=== PATIENT | male | born 1960 | race Caucasian/White ===

== ENCOUNTER → 2018-06-17 | Outpatient (CLI) | payer OTHER | END | disposition home or self-care (01) | LOC: CVU 10:36 | PROVIDERS: ATTEND Internal Medicine Cardiovascular Disease | DX: I49.3 Ventricular premature depolarization (principal); I10 Essential (primary) hypertension | CPT/HCPCS: 78452; 93017; 93306; A9502 ==

== ENCOUNTER 2018-06-29 09:38 | Day surgery (SDC) | payer OTHER ==
[~2018-06-29] VITALS: Ht 175.3 cm; Wt 115.9 kg
[2018-06-29] MEDS ORDERED: PREG150C PO (10:05)
[2018-06-29] MEDS ORDERED: ATOR40TA78 PO (10:05)
[2018-06-29] MEDS ORDERED: ALLO300T PO (10:05)
[2018-06-29] MEDS ORDERED: LISI-167 PO (10:05)
[2018-06-29] MEDS ORDERED: METO25TA35 PO (10:05)
[2018-06-29] MEDS ORDERED: OMEP-110 PO (10:05)
[2018-06-29] MEDS ORDERED: KRIL1CAP6 PO (10:11)
[2018-06-29] MEDS ORDERED: MULT-751 PO (10:11)
[2018-06-29] MEDS ORDERED: MAGN100T PO (10:11)
[2018-06-29] MEDS ORDERED: SAW1CAPS2 PO (10:11)
[2018-06-29] MEDS ORDERED: CHOL5000 PO (10:11)
[2018-06-29] MEDS ORDERED: NIAC500C3 PO (10:11)
[2018-06-29] MEDS ORDERED: TURM500C7 PO (10:11)
[2018-06-29] MEDS ORDERED: ASPI-650 PO (10:11)
[2018-06-29] MEDS ORDERED: UBID100C41 PO (10:12)
[2018-06-29 10:18] VITALS: BP 150/79
[2018-06-29 10:48] LABS: ANION GAP 6 mmol/L (5-15); CALCIUM 9.4 mg/dL (8.5-10.1); CHLORIDE 105 mmol/L (98-107)
[2018-06-29 10:49] LABS: CREATININE 1.06 mg/dL (0.7-1.3)
[2018-06-29] MEDS ORDERED: NITROGLYCERIN 5 MG/ML, 10ML ONE (11:41)
[2018-06-29] MEDS ORDERED: MIDAZOLAM 1 MG/ML, 2ML ONE ×2 (11:41→12:42)
[2018-06-29] MEDS ORDERED: LIDOCAINE/PF 1%, 30ML ONE (11:41)
[2018-06-29] MEDS ORDERED: FENTANYL PF 100 MCG/2ML ONE (11:41)
[2018-06-29] MEDS ORDERED: VERAPAMIL 2.5 MG/ML, 2ML ONE (12:26)
== END 2018-06-29 16:07 | disposition home or self-care (01) ==
LOC: CACL 09:38
PROVIDERS: ATTEND Internal Medicine Cardiovascular Disease
DX: I25.119 Atherosclerotic heart disease of native coronary artery with unspecified angina pectoris (principal); E78.5 Hyperlipidemia, unspecified; G62.9 Polyneuropathy, unspecified; E66.9 Obesity, unspecified; I42.9 Cardiomyopathy, unspecified; I45.6 Pre-excitation syndrome; I10 Essential (primary) hypertension; Z98.61 Coronary angioplasty status; Z79.899 Other long term (current) drug therapy; Z95.5 Presence of coronary angioplasty implant and graft
CPT/HCPCS: 36415; 80048; 93458; 99156; C1769; C1894; J2250; J3010; J3490; Q9967

== ENCOUNTER → 2020-08-19 | Outpatient (CLI) | payer OTHER ==
[~2020-08-19] MED LIST: ALLO300T PO; ASPI-650 PO; ATOR40TA78 PO; CHOL5000 PO; KRIL1CAP6 PO; LISI-167 PO; MAGN100T PO; METO25TA35 PO; MULT-751 PO; NIAC500C3 PO; OMEP-110 PO; PREG150C PO; SAW1CAPS6 PO; TURM500C7 PO; UBID100C41 PO
== END | disposition home or self-care (01) ==
LOC: CVU 10:13
PROVIDERS: ATTEND Internal Medicine Cardiovascular Disease
DX: I08.2 Rheumatic disorders of both aortic and tricuspid valves (principal); I42.9 Cardiomyopathy, unspecified
CPT/HCPCS: 93306

== ENCOUNTER 2021-02-19 07:14 | Emergency (ER) | payer BC, OTHER ==
[~2021-02-19] VITALS: Ht 175.3 cm; Wt 123.7 kg
[~2021-02-19 07:14] MED LIST changes: +ASPI-1026 PO; -ASPI-650 PO
--- NOTE | 2021-02-19 07:32 | NUR ---
PATIENT WALKED BACK FROM TRIAGE WITH CHIEF C/O "I FEEL BLOATED." PATIENT REPORTS HE'S BEEN FEELING BLOATED SINCE 7 PM YESTERDAY EVENING, PT STATES "I FEEL LIKE I NEED TO BURP BUT CAN'T." PATIENT REPORTS NEAR SYNCOPAL EPISODE THIS MORNING. DENIES N/V/D, NO FEVER. CONNECTED TO MONITOR, VSS, AT BEDSIDE, CALL LIGHT WITHIN REACH.
[2021-02-19] MEDS ORDERED: MAALOX/HYOSCYAMINE/LIDOCAINE 45 ML BTL ONE ×2 (07:42→11:38)
[2021-02-19] MEDS ORDERED: FAMOTIDINE 20 MG TABLET ONE (07:42)
[2021-02-19 07:56] LABS: BASOPHILS % (AUTO) 1 % (0-1); EOSINOPHILS % (AUTO) 1 % (1-7); LYMPHOCYTES % (AUTO) 28 % (22-44); MEAN CORPUSCULAR HEMOGLOBIN 33.4 pg (27.5-34.5); MEAN CORPUSCULAR HGB CONC 33.7 g/dL (33.2-36.2); MEAN PLATELET VOLUME 7.8 fL (7.4-10.4); MONOCYTES % (AUTO) 11 % (2-9); NEUTROPHILS % (AUTO) 59 % (42-75); PLATELET COUNT 306 x10^3/uL (130-400); RED BLOOD COUNT 4.57 x10^6/uL (4.38-5.82); RED CELL DISTRIBUTION WIDTH 13.7 % (9.4-14.8)
[2021-02-19] MEDS ORDERED: FAMOTIDINE 20 MG TABLET PO ONE (08:00)
[2021-02-19] MEDS ORDERED: MAALOX/HYOSCYAMINE/LIDOCAINE 45 ML BTL PO ONE ×2 (08:00→12:00)
[2021-02-19 08:06] LABS: ALANINE AMINOTRANSFERASE 50 U/L (12-78); ALBUMIN 3.7 g/dL (3.4-5.0); ANION GAP 7 mmol/L (5-15); CALCIUM 9.6 mg/dL (8.5-10.1); CHLORIDE 106 mmol/L (98-107); CREATININE 1.42 mg/dL (0.7-1.3)
[2021-02-19 08:11] LABS: ALKALINE PHOSPHATASE 58 U/L (45-117); BILIRUBIN,TOTAL 0.4 mg/dL (0.2-1.0); TOTAL PROTEIN 8.2 g/dL (6.4-8.2); TROPONIN I < 0.015 ng/mL (0.000-0.045)
--- NOTE | 2021-02-19 08:39 | NUR ---
[address] SCAN, PATIENT CONNECTED TO MONITOR, VSS, CALL LIGHT WITHIN REACH. WAITING FOR CT SCAN.
[2021-02-19] MEDS ORDERED: OMNIPAQUE 350 MG/ML, 150 ML BOTTLE ONE (09:23)
--- NOTE | 2021-02-19 09:30 | NUR ---
Task RN: urine collected and sent to lab.
[2021-02-19 10:14] LABS: MICROSCOPIC NOT IND
--- NOTE | 2021-02-19 10:30 | NUR ---
PATIENT RESTING IN CEDRIC [place]AL[place] VSS, AT BEDSIDE, CALL LIGHT WITHIN REACH, NO FURTHER NEEDS AT THIS TIME. WAITING FOR ESOPHAGRAM.
--- NOTE | 2021-02-19 10:51 | NUR ---
PATIENT TO IMAGING FOR ESOPHAGRAM.
--- NOTE | 2021-02-19 11:31 | NUR ---
ERPA AT BEDSIDE TO DISCUSS POC.
[2021-02-19 11:43] VITALS: BP 162/73
== END 2021-02-19 11:45 | disposition home or self-care (01) ==
LOC: ED 07:35
DX: R10.33 Periumbilical pain (principal); R10.13 Epigastric pain
CPT/HCPCS: 36415; 71045; 74177; 74220; 80053; 81003; 83690; 84484; 85025; 93005; 99285; Q9967